=== PATIENT | male | born 1955 | race Caucasian/White ===

== ENCOUNTER 2018-08-17 06:05 | Day surgery (SDC) | payer OTHER ==
[~2018-08-17] VITALS: Ht 167.6 cm; Wt 72.6 kg
[~2018-08-17 06:05] MED LIST: ADVIL200 MG PO; MICARDIS20 MG PO
[2018-08-17 06:31] VITALS: BP 114/83; PULSE 64; TEMP 97.6
[2018-08-17] MEDS ORDERED: ASPIRIN 81M81 MG/TA2 PO (06:54)
[2018-08-17] MEDS ORDERED: JARDIANCE10 PO (06:55)
[2018-08-17] MEDS ORDERED: LIPITOR 10MG10 MG PO (06:56)
[2018-08-17] MEDS ORDERED: NORVASC 5MG5 MG/TAB PO (06:58)
[2018-08-17] MEDS ORDERED: TOPROL XL 25MG25 MG PO (06:58)
[2018-08-17] MEDS ORDERED: RANEXA 500MG T500 MG PO (06:59)
[2018-08-17 08:10] VITALS: BP 97/67; PULSE 67; TEMP 97.6
[2018-08-17 08:25] VITALS: BP 105/77; PULSE 73
[2018-08-17 08:45] VITALS: BP 96/78; PULSE 60
== END 2018-08-17 08:56 | disposition home or self-care (01) ==
LOC: SDCO 06:05
DX: Z12.11 Encounter for screening for malignant neoplasm of colon (principal); D12.0 Benign neoplasm of cecum; D12.2 Benign neoplasm of ascending colon; K57.30 Diverticulosis of large intestine without perforation or abscess without bleeding; E78.00 Pure hypercholesterolemia, unspecified; I10 Essential (primary) hypertension; Z79.82 Long term (current) use of aspirin; Z95.5 Presence of coronary angioplasty implant and graft; Z90.49 Acquired absence of other specified parts of digestive tract; Z86.010 Personal history of colon polyps; Z86.79 Personal history of other diseases of the circulatory system
CPT/HCPCS: J2250; J3010; J7030